=== PATIENT | female | born 1990 | race Hispanic/Latino ===

== ENCOUNTER 2017-11-20 09:58 | Emergency (ER) | payer OTHER ==
[~2017-11-20] VITALS: Ht 175.3 cm; Wt 72.6 kg
[2017-11-20] MEDS ORDERED: ALPRAZOLAM 1 MG TAB PO ONE (11:00)
== END 2017-11-20 11:33 | disposition home or self-care (01) ==
LOC: FSED 09:58
DX: R07.89 Other chest pain (principal)
CPT/HCPCS: 93005; 99284